=== PATIENT | female | born 1985 | race Caucasian/White ===

== ENCOUNTER 2018-11-22 22:13 | Emergency (ER) | payer BC, OTHER ==
[~2018-11-22] VITALS: Ht 157.5 cm; Wt 59.0 kg
[2018-11-22 22:49] VITALS: BP_SYST 107
[2018-11-22] MEDS ORDERED: ACETAMINOPHEN 500 MG TABLET PO ONE (23:00)
[2018-11-22 23:16] LABS: BILIRUBIN,URINE NEGATIVE (NEGATIVE); BLOOD, URINE NEGATIVE (NEGATIVE); CLARITY/URINE CLEAR (CLEAR); COLOR,URINE YELLOW (YELLOW); GLUCOSE,URINE NEGATIVE (NEGATIVE); KETONES,URINE TRACE (NEGATIVE); LEUKOCYTE ESTERASE ,URINE NEGATIVE (NEGATIVE); NITRITE, URINE NEGATIVE (NEGATIVE); PROTEIN URINE NEGATIVE (NEGATIVE); UROBILINOGEN,URINE 0.2 (0.2-1.0)
[2018-11-22 23:18] LABS: HEMOGLOBIN 12.1 g/dL (12.0-16.0); RED BLOOD CELL COUNT(AUTO) 4.44 MIL/uL (4.2-6.2); WHITE BLOOD COUNT (AUTO) 14.6 K/uL (4.8-10.8)
[2018-11-22 23:19] LABS: BASOPHILS % (AUTO) 0.4 % (0.0-2.0); EOSINOPHILS % (AUTO) 0.2 % (0.0-4.0); HEMATOCRIT 35.6 % (36-48); LYMPHOCYTES # (AUTO) 1.6 K/uL (1.0-5.5); LYMPHOCYTES % (AUTO) 11.1 % (20.5-51.5); MEAN CORPUSCULAR HEMOGLOBIN 27 pg (27-31); MEAN CORPUSCULAR HGB CONC 34 % (32-36); MEAN CORPUSCULAR VOLUME 80 fL (79.0-98.0); MONOCYTES # (AUTO) 0.7 K/uL (0.0-1.0); MONOCYTES % (AUTO) 4.9 % (1.7-9.3); NEUTROPHILS # (AUTO) 12.2 K/uL (1.8-7.7); NEUTROPHILS % (AUTO) 83.4 % (40.0-70.0); PLATELET COUNT (AUTO) 211 K/uL (130-430); RED CELL DISTRIBUTION WIDTH 13.5 % (9.0-15.0)
[2018-11-22 23:20] LABS: BASOPHILS # (AUTO) 0.1 K/uL (0.0-0.2)
[2018-11-22 23:26] LABS: CALCIUM 8.4 mg/dL (8.4-11.0); CREATININE 0.64 mg/dL (0.55-1.30); POTASSIUM 3.5 mmol/L (3.5-5.1)
[2018-11-22 23:38] LABS: ALBUMIN 4.8 g/dL (3.4-4.8); TOTAL BILIRUBIN 0.9 mg/dL (0.0-1.0)
[2018-11-23 02:02] VITALS: BP_SYST 110
== END 2018-11-23 01:30 | disposition home or self-care (01) ==
LOC: SED 22:13
DX: R10.11 Right upper quadrant pain (principal)
CPT/HCPCS: 36415; 76700-TC; 80053; 81003; 83690-TC; 85025; 99284

== ENCOUNTER 2019-02-19 21:58 | Emergency (ER) | payer BC ==
[~2019-02-19] VITALS: Ht 157.5 cm; Wt 61.2 kg
--- NOTE | 2019-02-19 21:58 | NUR ---
Patient to ER bed 8 to gown for evaluation. Side rails up.
[2019-02-19 22:00] VITALS: BP_SYST 107
--- NOTE | 2019-02-19 22:28 | NUR ---
Dr. Hernandez bedside for Pt eval
--- NOTE | 2019-02-19 22:50 | NUR ---
[place] king in [facility] - 02/20/19 at [address] Mary noel for Pt tonioal
--- NOTE | 2019-02-19 22:55 | NUR ---
Pt BIBA to ED C/O allergic reaction since last night. Pt reported nausea and lightheadedness this evening. Pt denies LOC. Pt denies fever, chills, or vomiting. Pt denies chest pain, SOB, or difficulty swallowing. Pt with itch. Pt took Benadryl with improvement in symptoms. No other injuries and or complaints noted. VSS no s/s of acute distress. Resting on gurney with rails up
[2019-02-19 23:05] VITALS: BP_SYST 107
--- NOTE | 2019-02-19 23:05 | NUR ---
Patient given written and verbal discharge instructions and verbalizes understanding. ER MD discussed with patient the results and treatment provided. Patient in stable condition. ID arm band removed. Rx of Prednisone given. Patient educated on pain management and to follow up with PMD. Pain Scale 0/10. Opportunity for questions provided and answered. Medication side effect fact sheet provided.
== END 2019-02-19 23:05 | disposition home or self-care (01) ==
LOC: SED 21:58
DX: L29.9 Pruritus, unspecified (principal); R21 Rash and other nonspecific skin eruption
CPT/HCPCS: 99283

== ENCOUNTER 2021-05-20 03:31 | Emergency (ER) | payer BC ==
[~2021-05-20] VITALS: Ht 157.5 cm; Wt 59.0 kg
[2021-05-20 03:50] VITALS: BP_SYST 112
--- NOTE | 2021-05-20 03:55 | NUR ---
Patient to ER bed 5 to gown for evaluation. Side rails up.
--- NOTE | 2021-05-20 03:56 | NUR ---
Came in ER ambulatory from home this 35 year old female, AAOX4, breathing spontaneously at room air, not in distress noted. With chief complaints of left flank pain radiating to abdomen since 8pm, denies nausea/ vomiting/ constipation/ diarrhea. no known medical history, uterine fibriod removal 10 yrs ago, vital signs stable
--- NOTE | 2021-05-20 04:00 | NUR ---
Seen and examined by DR. Burgess
[2021-05-20 04:10] LABS: BILIRUBIN,URINE NEGATIVE (NEGATIVE); BLOOD, URINE NEGATIVE (NEGATIVE); CLARITY/URINE CLEAR (CLEAR); COLOR,URINE YELLOW (YELLOW); GLUCOSE,URINE NEGATIVE (NEGATIVE); KETONES,URINE NEGATIVE (NEGATIVE); LEUKOCYTE ESTERASE ,URINE NEGATIVE (NEGATIVE); NITRITE, URINE NEGATIVE (NEGATIVE); PH,URINE 6.5 (5.0-8.0); PROTEIN URINE NEGATIVE (NEGATIVE); UROBILINOGEN,URINE 0.2 (0.2-1.0)
[2021-05-20] MEDS ORDERED: KETOROLAC TROMETHAMINE 30 MG VIAL IM ONE (04:15)
--- NOTE | 2021-05-20 04:15 | NUR ---
Refused for Toradol IM, Dr. Burgess made aware
--- NOTE | 2021-05-20 04:45 | NUR ---
[employer] technical lead senior developer at bedside, blood drawn
[2021-05-20 05:41] VITALS: BP_SYST 110
--- NOTE | 2021-05-20 05:41 | NUR ---
Patient given written and verbal discharge instructions and verbalizes understanding. ER MD discussed with patient the results and treatment provided. Patient in stable condition. ID arm band removed. Rx of Bentyl given. Patient educated on pain management and to follow up with PMD. Pain Scale 0/10. Opportunity for questions provided and answered. Medication side effect fact sheet provided.
== END 2021-05-20 05:41 | disposition home or self-care (01) ==
LOC: SED 03:31
DX: R10.12 Left upper quadrant pain (principal)
CPT/HCPCS: 81003; 81025; 99283; J1885